=== PATIENT | female | born 1945 | race Caucasian/White ===

== ENCOUNTER 2017-02-01 10:50 | Outpatient (CLI) | payer MEDICARE, OTHER | END 2017-02-01 10:52 | LOC: LAB 10:50 | PROVIDERS: ATTEND Family Medicine | DX: Z51.81 Encounter for therapeutic drug level monitoring (principal); Z79.01 Long term (current) use of anticoagulants; I48.91 Unspecified atrial fibrillation | CPT/HCPCS: 36415; 85610 ==

== ENCOUNTER 2017-02-08 09:00 | Outpatient (CLI) | payer MEDICARE, OTHER | END 2017-02-08 09:02 | LOC: LAB 09:00 | PROVIDERS: ATTEND Family Medicine | DX: E78.5 Hyperlipidemia, unspecified (principal) | CPT/HCPCS: 36415; 80061 ==

== ENCOUNTER 2017-04-22 08:00 | Outpatient (CLI) | payer MEDICARE, OTHER | END 2017-04-22 08:02 | LOC: LAB 08:00 | PROVIDERS: ATTEND Family Medicine | DX: I48.91 Unspecified atrial fibrillation (principal); Z79.01 Long term (current) use of anticoagulants | CPT/HCPCS: 36415; 85610 ==

== ENCOUNTER 2017-05-07 08:42 | Outpatient (CLI) | payer MEDICARE, OTHER | END 2017-05-07 09:03 | LOC: LAB 08:42 | PROVIDERS: ATTEND Family Medicine | DX: I48.91 Unspecified atrial fibrillation (principal); Z79.01 Long term (current) use of anticoagulants | CPT/HCPCS: 36415; 85610 ==

== ENCOUNTER 2017-05-22 09:53 | Outpatient (CLI) | payer MEDICARE, OTHER | END 2017-05-22 09:54 | LOC: LAB 09:53 | PROVIDERS: ATTEND Family Medicine | DX: I48.91 Unspecified atrial fibrillation (principal); Z79.01 Long term (current) use of anticoagulants | CPT/HCPCS: 36415; 85610 ==

== ENCOUNTER 2017-05-28 13:26 | Outpatient (CLI) | payer MEDICARE, OTHER | END 2017-05-28 13:27 | LOC: CARD 13:26 | PROVIDERS: ATTEND Internal Medicine Cardiovascular Disease | DX: I48.0 Paroxysmal atrial fibrillation (principal); Z79.01 Long term (current) use of anticoagulants; I47.1 Supraventricular tachycardia; E78.5 Hyperlipidemia, unspecified | CPT/HCPCS: G0463 ==

== ENCOUNTER 2017-07-23 10:31 | Outpatient (CLI) | payer MEDICARE, OTHER | END 2017-07-23 10:32 | LOC: LAB 10:31 | PROVIDERS: ATTEND Family Medicine | DX: I48.91 Unspecified atrial fibrillation (principal); Z79.01 Long term (current) use of anticoagulants | CPT/HCPCS: 36415; 85610 ==

== ENCOUNTER 2018-04-29 12:45 | Outpatient (CLI) | payer MEDICARE, OTHER | END 2018-04-29 12:46 | LOC: CARD 12:45 | PROVIDERS: ATTEND Internal Medicine Cardiovascular Disease | DX: I48.91 Unspecified atrial fibrillation (principal); R07.9 Chest pain, unspecified; E78.5 Hyperlipidemia, unspecified; Z86.79 Personal history of other diseases of the circulatory system | CPT/HCPCS: G0463 ==

== ENCOUNTER 2018-06-03 14:28 | Outpatient (CLI) | payer MEDICARE, OTHER | END 2018-06-03 14:30 | LOC: CARD 14:28 | PROVIDERS: ATTEND Internal Medicine Cardiovascular Disease | DX: I48.91 Unspecified atrial fibrillation (principal); Z86.79 Personal history of other diseases of the circulatory system; R07.9 Chest pain, unspecified; E78.5 Hyperlipidemia, unspecified | CPT/HCPCS: G0463 ==